=== PATIENT | female | born 1945 ===

== ENCOUNTER 2023-04-19 03:10 | Inpatient (IN) | payer MEDICARE, OTHER ==
[2023-04-15 13:34] VITALS: BMI 20.9
[2023-04-19] MEDS ORDERED: Fentanyl 250 MCG/5 ML VIAL ONE (06:14)
[2023-04-19] MEDS ORDERED: Dexamethasone 4 mg/ml Vial ONE (06:25)
[2023-04-19] MEDS ORDERED: Heparin 5,000 UNITS/ML VIAL ONE (06:25)
[2023-04-19] MEDS ORDERED: Bupivacaine HCl 0.5%/Epinephrine 1:200,000/PF 30 ml Vial ONE (06:25)
[2023-04-19] MEDS ORDERED: Protamine Sulfate 50 MG/5 ML VIAL ONE (06:25)
[2023-04-19] MEDS ORDERED: Sodium Chloride 0.9% 100 ML ONE (07:22)
[2023-04-19] MEDS ORDERED: CEFAZOLIN 2 GM VIAL ONE (07:22)
[2023-04-19] MEDS ORDERED: Labetalol HCl 100 MG/20 ML VIAL ONE (07:24)
[2023-04-19] MEDS ORDERED: Dexamethasone 20 MG/5 ML VIAL ONE (07:24)
[2023-04-19] MEDS ORDERED: PROPOFOL 200 MG/20 ML VIAL ONE (07:24)
[2023-04-19] MEDS ORDERED: Ondansetron PF 4 MG/2 ML Vial ONE (07:24)
[2023-04-19] MEDS ORDERED: Rocuronium Bromide 10 MG/ML (10ML VIAL) ONE (07:24)
[2023-04-19] MEDS ORDERED: Midazolam HCl 2 mg/2 ml Vial ONE (07:44)
[2023-04-19] MEDS ORDERED: SUGAMMADEX SODIUM 200 MG/2 ML VIAL ONE (08:26)
== END 2023-04-19 10:49 | disposition home or self-care (01) | DRG 68 ==
LOC: SURG A 06:05
PROVIDERS: ADMIT Thoracic Surgery (Cardiothoracic Vascular Surgery); ATTEND Thoracic Surgery (Cardiothoracic Vascular Surgery)
PROC: B30 Imaging, Upper Arteries, Plain Radiography (ICD-10-PCS; principal; 2023-04-19)
DX: I65.21 Occlusion and stenosis of right carotid artery (principal); G35 Multiple sclerosis; E78.2 Mixed hyperlipidemia; I10 Essential (primary) hypertension; Z53.8 Procedure and treatment not carried out for other reasons; K21.9 Gastro-esophageal reflux disease without esophagitis; Z90.49 Acquired absence of other specified parts of digestive tract; Z98.890 Other specified postprocedural states
CPT/HCPCS: 80048; 85027; 93005; C1725; C1769; C1884; J1100; J1644; J2250; J2405; J2704; J2720; J3010; J3490